=== PATIENT | male | born 1960 | race Two or more races ===

== ENCOUNTER 2019-05-25 11:56 | Emergency (ER) | payer BC ==
--- NOTE | 2019-05-25 12:22 | EDM.PDOC ---
ED HPI GENERAL MEDICAL PROBLEM - General Chief Complaint: Medication Administration Stated Complaint: OUT OF HIGH BLOOD PRESSURE MEDS FROM OUT OF TOWN Time Seen by Provider: 05/25/19 12:21 Source of Information: Reports: Patient History Limitations: Reports: No Limitations - History of Present Illness INITIAL COMMENTS - FREE TEXT/NARRATIVE: HISTORY AND PHYSICAL: History of present illness: Patient is a 58-year-old male presents the ED for medication refill. Patient states that he lives in [facility] and for the past week he has been out of his blood pressure medication. He states he is try to call his doctor's office to get a refill but has not been able to reach them. He states he has been having headaches for the past week controlled with ibuprofen but denies any chest pain, shortness of breath, nausea, vomiting, abdominal pain. He is returning home in the next few days. Blood today is 134/87. Review of systems: As per history of present illness and below otherwise all systems reviewed and negative. Past medical history: As per history of present illness and as reviewed below otherwise noncontributory. Surgical history: As per history of present illness and as reviewed below otherwise noncontributory. Social history: No reported history of drug or alcohol abuse. Family history: As per history of present illness and as reviewed below otherwise noncontributory. Physical exam: General: Patient sitting comfortably in no acute distress and nontoxic appearing HEENT: Atraumatic, normocephalic, pupils reactive, negative for conjunctival pallor or scleral icterus, mucous membranes moist, throat clear, neck supple, nontender, trachea midline. No meningeal signs. Lungs: Clear to auscultation, breath sounds equal bilaterally, chest nontender. Heart: S1S2, regular, negative for clicks, rubs, or overt murmur. Abdomen: Soft, nondistended, nontender. Negative for masses or hepatosplenomegaly. Negative for costovertebral tenderness. No rigidity, rebound , guarding. Pelvis: Stable nontender. Genitourinary: Deferred. Rectal: Deferred. Extremities: Atraumatic, negative for cords or calf pain. Neurovascular unremarkable. Neuro: Awake, alert, oriented. Cranial nerves II through XII unremarkable. Cerebellum unremarkable. Motor and sensory unremarkable throughout. Exam nonfocal. Notes: Diagnostics: none Therapeutics: none Prescriptions: Losartan-HCTZ Impression: History of hypertension Plan: Follow up with primary care provider Return to ED as needed as discussed Definitive disposition and diagnosis as appropriate pending reevaluation and review of above. - Related Data Allergies Allergy/AdvReac Type Severity Reaction Status Date / Time No Known Allergies Allergy Verified 05/25/19 12:12 Home Meds: Home Meds Losartan Potassium 50 mg PO DAILY 05/25/19 [History] Losartan/Hydrochlorothiazide [Losartan-HCTZ 50-12.5 MG] 1 each PO DAILY #20 tablet 05/25/19 [Rx] ED ROS GENERAL - Review of Systems Review Of Systems: Comprehensive ROS is negative, except as noted in HPI. ED EXAM, GENERAL - Physical Exam Exam: See Below (see dictation) Course - Vital Signs Last Recorded V/S: Last Vital Signs Temp 98.3 F 05/25/19 12:24 Pulse 66 05/25/19 12:24 Resp 17 05/25/19 12:24 BP 134/87 05/25/19 12:24 Pulse Ox 99 05/25/19 12:24 Departure - Departure Time of Disposition: 12:42 Disposition: Home, Self-Care 01 Condition: Good Clinical Impression: History of hypertension - Discharge Information Prescriptions: Losartan/Hydrochlorothiazide [Losartan-HCTZ 50-12.5 MG] 1 each PO DAILY #20 tablet Referrals: PCP,Unknown [Primary Care Provider] - Forms: ED Department Discharge Additional Instructions: The following information is given to patients seen in the emergency department who are being discharged to home. This information is to outline your options for follow-up care. We provide all patients seen in our emergency department with a follow-up referral. The need for follow-up, as well as the timing and circumstances, are variable depending upon the specifics of your emergency department visit. If you don't have a primary care physician on staff, we will provide you with a referral. We always advise you to contact your personal physician following an emergency department visit to inform them of the circumstance of the visit and for follow-up with them and/or the need for any referrals to a consulting specialist. The emergency department will also refer you to a specialist when appropriate. This referral assures that you have the opportunity for follow-up care with a specialist. All of these measure are taken in an effort to provide you with optimal care, which includes your follow-up. Under all circumstances we always encourage you to contact your private physician who remains a resource for coordinating your care. When calling for follow-up care, please make the office aware that this follow-up is from your recent emergency room visit. If for any reason you are refused follow-up, please contact the [facility] Emergency Department at and asked to speak to the emergency department charge nurse. [facility] [address] [place] [id number] [facility] [address] [place] [id number] Follow up with primary care provider Return to ED as needed as discussed Sepsis Event Note - Focused Exam Vital Signs: Vital Signs Temp Pulse Resp BP Pulse Ox 05/25/19 12:24 98.3 F 66 17 134/87 99 Date Exam was Performed: 05/25/19 Time Exam was Performed: 12:40
== END 2019-05-25 12:52 | disposition home or self-care (01) ==
LOC: MW.ED 11:56
DX: Z76.0 Encounter for issue of repeat prescription (principal); I10 Essential (primary) hypertension
CPT/HCPCS: 99281; 99283

== ENCOUNTER 2019-10-27 18:49 | Emergency (ER) | payer BC, MEDICARE ==
[2019-10-27] MEDS ORDERED: Sodium Chloride 0.9% 1,000 ML IV ONE (18:55)
[2019-10-27] MEDS ORDERED: Ketorolac 30 MG/ML SDV IVPUSH ONE (18:55)
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
--- NOTE | 2019-10-27 19:23 | CR ---
Chest: Portable view of the chest was obtained. Comparison: No prior chest imaging is available. Heart size and mediastinum are normal. Lungs are clear with no acute parenchymal change. Bony structures are grossly intact. Impression: 1. Nothing acute is seen on portable chest x-ray. Diagnostic code #1 This report was dictated in MDT
[2019-10-27 19:28] LABS: CARBON DIOXIDE,CO2 23.9 mmol/L (21.0-32.0); POTASSIUM,K 5.4 mmol/L (3.5-5.1)
[2019-10-27] MEDS ORDERED: Cyclobenzaprine 10 MG Tab PO ONE (19:36)
== END 2019-10-27 20:50 | disposition home or self-care (01) ==
LOC: MW.ED 18:49
DX: J68.9 Unspecified respiratory condition due to chemicals, gases, fumes and vapors (principal); E87.5 Hyperkalemia; M54.9 Dorsalgia, unspecified; I10 Essential (primary) hypertension; Z79.899 Other long term (current) drug therapy; X08.8XXA Exposure to other specified smoke, fire and flames, initial encounter
CPT/HCPCS: 36415; 71045; 80053; 82375; 85025; 93005; 96374; 99285; A9270; J1885; J7030; 99283